=== PATIENT | female | born 1985 | race Caucasian/White ===

== ENCOUNTER 2016-07-06 19:40 | Emergency (ER) | payer OTHER ==
[~2016-07-06] VITALS: Ht 162.6 cm; Wt 86.4 kg
[~2016-07-06 19:40] MED LIST: ACET1TAB40 PO; ALBU8.5H3 INH; ALBU8.5H5 IH; BUDE180A2 IH; IBUP-1542 PO; PRED50TA PO; ZOF8 PO
[2016-07-06 19:56] VITALS: Ht 162.6 cm; Wt 86.4 kg
[2016-07-06] MEDS ORDERED: DEXAMETHASONE 10 MG/ML 1 ML INJ IM ONE (22:00)
[2016-07-06] MEDS ORDERED: IPRATROPIUM (NEB) 0.5 MG/2.5 ML AMP HHN ONE (22:00)
[2016-07-06] MEDS ORDERED: ALBUTEROL 0.083% (NEB) 2.5 MG/3 ML AMP HHN ONE (22:00)
--- NOTE | 2016-07-06 22:02 | ERD ---
ER Documentation Chief Complaint Date/Time DATE: 07/06/16 TIME: 21:59 Chief Complaint SOB X 3 DAYS. RAN OUT OF INHALER HPI Patient is a 30-year-old female who presents to the ED with cough, wheeze and shortness of breath for 3 days. She states that she has a history of asthma and usually during this time of the year her allergies in the environment exacerbate her asthma. She states that she has not used her albuterol or her budesonide since she ran out. However she states that she is increasing in wheezing. She denies shortness of breath or difficulty breathing. Denies abdominal pain, nausea, vomiting or diarrhea. Denies fever chills, runny nose. Denies leg pain or swelling. Denies recent travel, recent surgeries or use of OCPs. No other complaints ROS All systems reviewed and are negative except as per history of present illness. Medications Home Meds Active Scripts Albuterol Sulfate* (Proair HFA*) 8.5 Gm Hfa.aer.ad, 2 PUFF INH Q4, #1 INHALER Prov:ROBERT KABA PA-C 07/06/16 Budesonide (Pulmicort Flexhaler) 180 Mcg Aer.pow.ba, 180 MCG INH BID, #1 EA Prov:ROBERT KABA PA-C 07/06/16 Albuterol Sulfate* (Proair HFA*) 8.5 Gm Hfa.aer.ad, 2 PUFF INH Q4, #1 INHALER Prov:KIM VELEZ PA-C 11/13/15 Prednisone* (Prednisone*) 50 Mg Tablet, 50 MG PO DAILY, #5 TAB Prov:KIM VELEZ PA-C 11/13/15 Ondansetron Hcl* (Zofran* ODT) 8 mg -ODT Tab.disper, 8 MG PO Q6H Y for NAUSEA AND OR VOMITING, #6 TAB Prov:CURRY SORTO MD 04/28/15 Acetaminophen-Codeine* (Acetaminophen-Cod #3*) 300-30 Mg Tab, 1 TAB PO Q4H Y for PAIN, #10 TAB Prov:CURRY SORTO MD 04/28/15 Ibuprofen* (Motrin*) 600 Mg Tab, 600 MG PO Q6, #14 TAB Prov:CURRY SORTO MD 04/28/15 Reported Medications Budesonide* (Pulmicort* Flexhaler) 180 Mcg/Aer Pow Ba Aer.pow.ba, 1 PUFF IH Q4 Y for WHEEZING AND SOB, INH 02/16/14 Albuterol Sulfate* (Albuterol Sulfate* HFA) 8.5 Gm Hfa.aer.ad, 2 PUFF IH every hour Y for WHEEZING AND SOB, EA 02/16/14 Allergies Allergies: Coded Allergies: No Known Drug Allergy (Verified Allergy, Unknown, 04/28/15) PMhx/Soc History of Surgery: Yes (cholecystectomy 2011, hernia) Anesthesia Reaction: No Hx Neurological Disorder: No Hx Respiratory Disorders: Yes (asthma) Hx Cardiac Disorders: No Hx Psychiatric Problems: No Hx Miscellaneous Medical Probl: No Hx Alcohol Use: Yes (OCCASIONALLY IN THE PAST) Hx Substance Use: No Hx Tobacco Use: Yes (QUIT 2012) Smoking Status: Former smoker FmHx Family History: No coronary disease, No diabetes, No other Physical Exam Vitals Vital Signs Date Time Temp Pulse Resp B/P Pulse Ox O2 Delivery O2 Flow Rate FiO2 07/06/16 23:10 98.0 75 100 Room Air 07/06/16 22:10 87 22 97 21 07/06/16 19:56 98.1 71 18 129/69 97 Physical Exam GENERAL: Well-developed, well-nourished female. Appears in no acute distress. HEAD: Normocephalic, atraumatic. EYES: Pupils are equally reactive bilaterally. EOMs grossly intact. No conjunctival erythema. ENT: Moist mucous membranes. No uvula deviation. No kissing tonsils. No exudates. NECK: Supple. No lymphadenopathy or thyromegaly. No meningismus. negative kernig. negative brudinski. LUNG: Clear to auscultation bilaterally. No rhonchi, rales or coarse breath sounds. Expiratory wheezing on the upper bilateral lung ingram. No retractions , nasal flaring. HEART: Regular rate and rhythm. No murmurs, rubs or gallops. SKIN: Normal color. Warm and dry. No rashes or lesions. Capillary refill < 2 seconds Results 24 hrs Current Medications Medications (Trade) Dose Ordered Sig/Sheela Route PRN Reason Start Time Stop Time Status Last Admin Dose Admin Albuterol (Proventil 0.083% (Neb)) 2.5 mg ONCE ONCE HHN 07/06/16 22:00 07/06/16 22:01 DC 07/06/16 22:10 Ipratropium [place] (Atrovent 0.02% (Neb)) 0.5 mg ONCE ONCE HHN 07/06/16 22:00 07/06/16 22:01 DC 07/06/16 22:10 Dexamethasone (Decadron) 10 mg ONCE ONCE IM 07/06/16 22:00 07/06/16 22:01 DC 07/06/16 22:06 Procedures/MDM ER COURSE: I kept the patient and/or family informed of laboratory and diagnostic imaging results throughout the emergency room course. EKG, MONITORS, & DIAGNOSTIC IMAGING: [place] [id number] Radiology Main Line: [phone] DIAGNOSTIC IMAGING REPORT Patient: LEA KELLEY : 1985 Age: 30 Sex: F MR #: [id number] DOS: 07/06/16 [facility] Ordering MD: ROBERT KABA PA-C Location: [facility] Room/Bed: PROCEDURE: XR Chest. CLINICAL INDICATION: Cough. Wheezing TECHNIQUE: Portable AP upright view of the chest was obtained. COMPARISON: 05/15/2009 FINDINGS: The cardiomediastinal silhouette is within normal limits. The lungs are clear. There is no evidence for pleural effusion, pneumothorax or pulmonary vascular congestion. The osseous structures are intact with no evidence for acute abnormality. RPTAT:HJJR IMPRESSION: No evidence for acute intrathoracic pathology. Physician Aditya Date Time Electronically viewed and signed by Physician Aditya on 07/06/2016 22:26 JR/ CC: ROBERT KABA PA-C PROCEDURES: RT consult. albuterol and atrovent. tolerated medication and procedure well with no adverse reaction. Decadron 10mg IM. no adverse reaction. MEDICAL DECISION MAKING: This is a 30-year-old female who presents with cough, shortness of breath and wheezing 3 days. Vital signs were reviewed. Patient is afebrile. Patient is not hypoxic. Patient is not toxic or ill-appearing. Her temperature is 98.1 and she has an O2 sat of 97 in the ED. Patient likely has asthma exacerbation. After RT consult and treatment of albuterol and Atrovent, lung examination was within normal limits and wheezing had diminished. Her x-rays of her radiologist is within normal limits and unremarkable. Patient does not show signs of respiratory distress, speaking in full sentences and has no nasal flaring. Low suspicion for pneumonia, PE, pneumothorax, ACS, epiglottitis, obstruction, TB, pertussis, meningitis, sepsis. DISCHARGE: At this time, patient is stable for discharge and outpatient management with no new complaints during the ER course. Patient was sent home with albuterol and a refill of her budesonide.. Patient will be discharged home with instructions to recheck for new or worsening symptoms such as fever, nausea, weakness, LOC and to follow up with primary care in the next 1-2 days. Patient was advised to return to the ER for any new or worsening symptoms. Plan was discussed and patient and/or family understands and agrees. Home instructions were given. Departure Diagnosis: Primary Impression: Asthma with acute exacerbation Asthma severity: unspecified severity Qualified Code: J45.901 - Asthma with acute exacerbation, unspecified asthma severity Condition: Stable ROBERT KABA PA-C Jul 06, 2016 22:02
[2016-07-06] MEDS ORDERED: ALBU8.5H3 INH (22:03)
[2016-07-06] MEDS ORDERED: PULM180 INH (22:03)
--- NOTE | 2016-07-06 22:26 | RADRPT ---
PROCEDURE: XR Chest. CLINICAL INDICATION: Cough. Wheezing TECHNIQUE: Portable AP upright view of the chest was obtained. COMPARISON: 05/15/2009 FINDINGS: The cardiomediastinal silhouette is within normal limits. The lungs are clear. There is no evidenc e for pleural effusion, pneumothorax or pulmonary vascular congestion. The osseous structures are i ntact with no evidence for acute abnormality. RPTAT:HJJR IMPRESSION: No evidence for acute intrathoracic pathology. Physician Aditya Date Time Electronically viewed and signed by Osei Richard Physician on 07/06/2016 22:26 /
[2016-07-06 23:10] VITALS: PULSE 75; TEMP 98
== END 2016-07-06 23:10 | disposition home or self-care (01) ==
LOC: FTE 19:40
DX: J45.901 Unspecified asthma with (acute) exacerbation (principal); Z87.891 Personal history of nicotine dependence
CPT/HCPCS: 71010; 94664; 96372; J1100; Z7502; Z7610

== ENCOUNTER 2016-09-21 16:09 | Emergency (ER) | payer OTHER ==
[~2016-09-21] VITALS: Ht 160 cm; Wt 98.5 kg
[~2016-09-21 16:09] MED LIST changes: +PULM180 INH
[2016-09-21 16:29] VITALS: Ht 160 cm; Wt 98.5 kg
[2016-09-21] MEDS ORDERED: KETOROLAC 30 MG INJ IM STA (18:55)
[2016-09-21] MEDS ORDERED: DIAZEPAM 2 MG TAB PO ONE (19:00)
--- NOTE | 2016-09-21 19:37 | ERD ---
ER Documentation Chief Complaint Date/Time DATE: 09/21/16 TIME: 19:32 Chief Complaint NECK PAIN 02/16.HX OF NECK INJURY HPI Patient is a 30-year-old female who presents to the ED with right neck pain and arm pain 3 days. She states that she has had a similar injury in the past, over one year ago where she injured herself at work. She states that she does get occasional numbness and tingling in her right arm. She states that her child pulled her nail back and she felt pain in her neck and right arm. She states that her pain is localized to the right and left side of her neck. As well as the back. She denies fever or chills. She denies headache, dizziness. She states that she is able to move her neck but very minimally. She denies chest pain, cough, shortness of breath. She denies difficulty moving her arms. She denies abdominal pain, nausea, vomiting or diarrhea. She has not taken any medications for her symptoms. ROS All systems reviewed and are negative except as per history of present illness. Medications Home Meds Active Scripts Orphenadrine Citrate (Norflex) 100 Mg Tablet.sa, 100 MG PO BID for 14 Days, TAB.SA Prov:ROBERT KABA PA-C 09/21/16 Naproxen* (Naprosyn*) 500 Mg Tablet, 500 MG PO BID Y for PAIN AND/OR INFLAMMATION, #30 TAB Prov:ROBERT KABA PA-C 09/21/16 Albuterol Sulfate* (Proair HFA*) 8.5 Gm Hfa.aer.ad, 2 PUFF INH Q4, #1 INHALER Prov:ROBERT KABA PA-C 07/06/16 Budesonide (Pulmicort Flexhaler) 180 Mcg Aer.pow.ba, 180 MCG INH BID, #1 EA Prov:ROBERT KABA PA-C 07/06/16 Albuterol Sulfate* (Proair HFA*) 8.5 Gm Hfa.aer.ad, 2 PUFF INH Q4, #1 INHALER Prov:KIM VELEZ PA-C 11/13/15 Prednisone* (Prednisone*) 50 Mg Tablet, 50 MG PO DAILY, #5 TAB Prov:KIM VELEZ PA-C 11/13/15 Ondansetron Hcl* (Zofran* ODT) 8 mg -ODT Tab.disper, 8 MG PO Q6H Y for NAUSEA AND OR VOMITING, #6 TAB Prov:CURRY SORTO MD 04/28/15 Acetaminophen-Codeine* (Acetaminophen-Cod #3*) 300-30 Mg Tab, 1 TAB PO Q4H Y for PAIN, #10 TAB Prov:CURRY SORTO MD 04/28/15 Ibuprofen* (Motrin*) 600 Mg Tab, 600 MG PO Q6, #14 TAB Prov:CURRY SORTO MD 04/28/15 Reported Medications Budesonide* (Pulmicort* Flexhaler) 180 Mcg/Aer Pow Ba Aer.pow.ba, 1 PUFF IH Q4 Y for WHEEZING AND SOB, INH 02/16/14 Albuterol Sulfate* (Albuterol Sulfate* HFA) 8.5 Gm Hfa.aer.ad, 2 PUFF IH every hour Y for WHEEZING AND SOB, EA 02/16/14 Allergies Allergies: Coded Allergies: No Known Drug Allergy (Verified Allergy, Unknown, 04/28/15) PMhx/Soc History of Surgery: Yes (cholecystectomy 2011, hernia) Anesthesia Reaction: No Hx Neurological Disorder: No Hx Respiratory Disorders: Yes (asthma) Hx Cardiac Disorders: No Hx Psychiatric Problems: No Hx Miscellaneous Medical Probl: No Hx Alcohol Use: Yes (OCCASIONALLY IN THE PAST) Hx Substance Use: No Hx Tobacco Use: Yes (QUIT 2012) Smoking Status: Never smoker FmHx Family History: No coronary disease, No diabetes, No other Physical Exam Vitals Vital Signs Date Time Temp Pulse Resp B/P Pulse Ox O2 Delivery O2 Flow Rate FiO2 09/21/16 16:29 98.5 67 18 159/77 98 Physical Exam GENERAL: Well-developed, well-nourished female. Appears in no acute distress. HEAD: Normocephalic, atraumatic. EYES: Pupils are equally reactive bilaterally. EOMs grossly intact. No conjunctival erythema. ENT: Moist mucous membranes. No uvula deviation. No kissing tonsils. No exudates. NECK: Supple. No lymphadenopathy or thyromegaly. No meningismus. negative kernig. negative brudinski. LUNG: Clear to auscultation bilaterally. No rhonchi, wheezing, rales or coarse breath sounds. HEART: Regular rate and rhythm. No murmurs, rubs or gallops. Extremities: Equal pulses bilaterally. No peripheral clubbing, cyanosis or edema. No unilateral leg swelling. Tenderness to the spinal process and paraspinal process. Tenderness to her lateral sides of her neck. No step-offs or deformities. Pain with extreme abduction of her right and left arm. No wrist drop. Radius ulnar and median nerve intact. Pulses intact. NEUROLOGIC: Alert and oriented. Moving all four extremities. Normal speech. Steady gait. SKIN: Normal color. Warm and dry. No rashes or lesions. Capillary refill < 2 seconds Results 24 hrs Current Medications Medications (Trade) Dose Ordered Sig/Sheela Route PRN Reason Start Time Stop Time Status Last Admin Dose Admin Ketorolac Tromethamine (Toradol) 30 mg ONCE STAT IM 09/21/16 18:55 09/21/16 18:57 DC 09/21/16 19:46 Diazepam (Valium) 2 mg ONCE ONCE PO 09/21/16 19:00 09/21/16 19:01 DC Procedures/MDM ER COURSE: I kept the patient and/or family informed of laboratory and diagnostic imaging results throughout the emergency room course. IMAGING STUDIES pending MEDICATIONS Toradol and Valium. Tolerated well with no adverse reaction. Seen improvement in symptoms. Negative test. MEDICAL DECISION MAKING: This is a 30-year-old female who presents with neck pain 2 days. Vital signs were reviewed. Patient is afebrile. Patient is not hypoxic. Patient is not toxic or ill-appearing. Her x-ray is pending. If x-ray is unremarkable for fracture or dislocation, patient will be sent home with Naprosyn and Norflex as anti-inflammatory for her muscle strain versus sprain. Patient is stable at transfer to physician clothing sales assistant Cadence Lundberg PA-C. All questions were answered. Departure Diagnosis: Primary Impression: Neck pain Condition: Stable Comments ER COURSE: I kept the patient and/or family informed of laboratory and diagnostic imaging results throughout the emergency room course. IMAGING STUDIES MEDICATIONS Toradol 30 mg IM and Valium. Patient tolerated well with no adverse reaction. MEDICAL DECISION MAKING: This is a 30-year-old female who presents with neck pain 2 days. Vital signs were reviewed. Patient is afebrile. Patient is not hypoxic. Patient is nontoxic or ill-appearing. Patient likely has muscle strain versus sprain versus radiculopathy. Her x-rays of by radiologist does not show fracture or dislocation is unremarkable. I reexamined patient after medication and she stated improvement in symptoms and she had an increase in range of motion. Low suspicion for dislocation, fracture, epidural abscess, herniation, osteomyelitis , meningitis, neurological deficit DISCHARGE: At this time, patient is stable for discharge and outpatient management with no new complaints during the ER course. Patient was sent home with Naprosyn and Norflex. Patient will be discharged home with instructions to recheck for new or worsening symptoms such as fever, nausea, weakness, LOC and to follow up with primary care in the next 1-2 days. Patient was advised to return to the ER for any new or worsening symptoms. Plan was discussed and patient and/or family understands and agrees. Home instructions were given. ROBERT KABA PA-C September 21, 2016 19:37
[2016-09-21] MEDS ORDERED: ORPH100T PO (19:38)
[2016-09-21] MEDS ORDERED: NAPR-260 PO (19:38)
--- NOTE | 2016-09-21 20:22 | RADRPT ---
PROCEDURE: XR Cervical Spine. CLINICAL INDICATION: Neck pain TECHNIQUE: Three views of the cervical spine were performed. The images were reviewed on a PACS [employer]. COMPARISON: None. FINDINGS: The C7 vertebral body is partially visualized on the lateral view. There is straightening of the normal cervical lordosis. There is no acute fracture or dislocation. The vertebral body heights and disk spaces are preserved. The prevertebral soft tissues are normal. IMPRESSION: 1. No acute fracture or traumatic subluxation. 2. Straightening of the normal cervical lordosis. RPTAT: HFN .Sahra Hoskins MD, MD Date Time Electronically viewed and signed by .Sahra Hoskins MD, MD on 09/21/2016 20:22 .N/
--- NOTE | 2016-09-21 21:00 | EN ---
Date/Time of Note Date/Time of Note DATE: 09/21/16 TIME: 20:59 ER Progress Note X-ray was reviewed, x-ray was normal. There is no evidence of fracture dislocation. VADIM HARP September 21, 2016 21:00
== END 2016-09-21 21:09 | disposition home or self-care (01) ==
LOC: FTE 16:09
DX: M54.2 Cervicalgia (principal); J45.909 Unspecified asthma, uncomplicated; Z87.891 Personal history of nicotine dependence
CPT/HCPCS: 72040; 96372; J1885; Z7502; Z7610

== ENCOUNTER 2017-02-11 09:01 | Emergency (ER) | payer OTHER ==
[~2017-02-11] VITALS: Ht 154.9 cm; Wt 98.0 kg
[~2017-02-11 09:01] MED LIST changes: +NAPR-260 PO; +ORPH100T PO
[2017-02-11 09:03] VITALS: Ht 154.9 cm; Wt 98.0 kg
[2017-02-11] MEDS ORDERED: ALBUTEROL 0.083% (NEB) 2.5 MG/3 ML AMP HHN STA (09:21)
[2017-02-11] MEDS ORDERED: ACETAMINOPHEN 500 MG TAB PO STA (09:29)
--- NOTE | 2017-02-11 09:29 | ERD ---
ER Documentation Chief Complaint Date/Time DATE: 02/11/17 TIME: 09:21 Chief Complaint sob with throat pain x 2 days HPI 31-year-old female presents emergency department for shortness of breath and throat pain for 2 days. Stated that she felt like she had a fever last night. LMP: Stated that she just started yesterday. A0. Denies headache, dizziness, blurred vision, neck pain, difficulty swallowing, loss of appetite, chest pain, abdominal pain, , possibility of being , nausea, vomiting, constipation, diarrhea, urinary symptoms, loss of bowel bladder control, recent exposure to any illness, recent antibiotic use in the last 3 months, numbness or tingling sensation. No known drug allergies. Past medical history of asthma. Surgical history of cholecystectomy, hernia repair when she was a baby. Medication: Takes albuterol at home. Social: Stated that she is on Worker's Comp. at this time. Occasional drinks alcoholic beverages. Denies smoking, use of illegal drugs. ROS All systems reviewed and are negative except as per history of present illness. Medications Home Meds Active Scripts Amoxicillin/Potassium Clav (Amox-Clav 875-125 mg Tablet) 875-125 mg Tab, 1 TAB PO BID for 7 Days, #14 TAB Prov:INOCENTE TAVERAS 02/11/17 Prednisone* (Prednisone*) 20 Mg Tab, 40 MG PO DAILY for 4 Days, TAB Prov:INOCENTE TAVERAS 02/11/17 Acetaminophen* (Tylophen*) 500 Mg Capsule, 1 CAP PO Q6H Y for PAIN AND OR ELEVATED TEMP, #20 CAP Prov:INOCENTE TAVERAS 02/11/17 Albuterol Sulfate* (Proair HFA*) 8.5 Gm Hfa.aer.ad, 2 PUFF INH Q4, #1 INHALER Prov:INOCENTE TAVERAS 02/11/17 Orphenadrine Citrate (Norflex) 100 Mg Tablet.sa, 100 MG PO BID for 14 Days, TAB.SA Prov:ROBERT KABA PA-C 09/21/16 Naproxen* (Naprosyn*) 500 Mg Tablet, 500 MG PO BID Y for PAIN AND/OR INFLAMMATION, #30 TAB Prov:ROBERT KABA PA-C 09/21/16 Albuterol Sulfate* (Proair HFA*) 8.5 Gm Hfa.aer.ad, 2 PUFF INH Q4, #1 INHALER Prov:ROBERT KABA PA-C 07/06/16 Budesonide (Pulmicort Flexhaler) 180 Mcg Aer.pow.ba, 180 MCG INH BID, #1 EA Prov:ROBERT KABA PA-C 07/06/16 Albuterol Sulfate* (Proair HFA*) 8.5 Gm Hfa.aer.ad, 2 PUFF INH Q4, #1 INHALER Prov:KIM VELEZ PA-C 11/13/15 Prednisone* (Prednisone*) 50 Mg Tablet, 50 MG PO DAILY, #5 TAB Prov:KIM VLEEZ PA-C 11/13/15 Ondansetron Hcl* (Zofran* ODT) 8 mg -ODT Tab.disper, 8 MG PO Q6H Y for NAUSEA AND OR VOMITING, #6 TAB Prov:CURRY SORTO MD 04/28/15 Acetaminophen-Codeine* (Acetaminophen-Cod #3*) 300-30 Mg Tab, 1 TAB PO Q4H Y for PAIN, #10 TAB Prov:CURRY SORTO MD 04/28/15 Ibuprofen* (Motrin*) 600 Mg Tab, 600 MG PO Q6, #14 TAB Prov:CURRY SORTO MD 04/28/15 Reported Medications Budesonide* (Pulmicort* Flexhaler) 180 Mcg/Aer Pow Ba Aer.pow.ba, 1 PUFF IH Q4 Y for WHEEZING AND SOB, INH 02/16/14 Albuterol Sulfate* (Albuterol Sulfate* HFA) 8.5 Gm Hfa.aer.ad, 2 PUFF IH every hour Y for WHEEZING AND SOB, EA 02/16/14 Allergies Allergies: Coded Allergies: No Known Drug Allergy (Verified Allergy, Unknown, 02/11/17) PMhx/Soc History of Surgery: Yes (cholecystectomy 2011, hernia) Anesthesia Reaction: No Hx Neurological Disorder: No Hx Respiratory Disorders: Yes (asthma) Hx Cardiac Disorders: No Hx Psychiatric Problems: No Hx Miscellaneous Medical Probl: No Hx Alcohol Use: Yes (OCCASIONALLY IN THE PAST) Hx Substance Use: No Hx Tobacco Use: Yes (QUIT 2012) Physical Exam Vitals Vital Signs Date Time Temp Pulse Resp B/P Pulse Ox O2 Delivery O2 Flow Rate FiO2 02/11/17 10:18 98.2 88 20 125/73 98 Room Air 02/11/17 09:35 78 17 96 21 02/11/17 09:03 98.2 73 20 118/74 98 Physical Exam Const: [] Head: Atraumatic Eyes: Normal Conjunctiva ENT: Normal External Ears, Nose and Mouth. Throat: Uvula is midline nondisplaced. Tonsils are +2 bilaterally with redness and with exudates. Tolerating secretions. Patent airway. Speaks full and clear sentences. Neck: Full range of motion..~ No meningismus. Resp: Respirations even and nonlabored. Wheezing bilaterally. Cardio: Regular rate and rhythm, no murmurs Abd: Soft, non tender, non distended. Normal bowel sounds Skin: No petechiae or rashes Back: No midline or flank tenderness Ext: No cyanosis, or edema Neur: Awake and alert Psych: Normal Mood and Affect Results 24 hrs Current Medications Medications (Trade) Dose Ordered Sig/Sheela Route PRN Reason Start Time Stop Time Status Last Admin Dose Admin Methylprednisolone Sodium Succinate (Solu-Medrol) 125 mg ONCE ONCE IM 02/11/17 09:30 02/11/17 09:31 DC 02/11/17 09:42 Albuterol (Proventil 0.083% (Neb)) 5 mg ONCE STAT HHN 02/11/17 09:21 02/11/17 09:23 DC 02/11/17 09:34 Ipratropium [place] (Atrovent 0.02% (Neb)) 0.5 mg ONCE ONCE HHN 02/11/17 09:30 02/11/17 09:31 DC 02/11/17 09:34 Acetaminophen (Tylenol Tab) 500 mg ONCE STAT PO 02/11/17 09:29 02/11/17 09:32 DC 02/11/17 09:41 Procedures/MDM 31-year-old female presents emergency department for shortness of breath and throat pain for 2 days. Stated that she felt like she had a fever last night. LMP: Stated that she just started yesterday. A0. Denies headache, dizziness, blurred vision, neck pain, difficulty swallowing, loss of appetite, chest pain, abdominal pain, , possibility of being , nausea, vomiting, constipation, diarrhea, urinary symptoms, loss of bowel bladder control, recent exposure to any illness, recent antibiotic use in the last 3 months, numbness or tingling sensation. No known drug allergies. Past medical history of asthma. Surgical history of cholecystectomy, hernia repair when she was a baby. Medication: Takes albuterol at home. Social: Stated that she is on Worker's Comp. at this time. Occasional drinks alcoholic beverages. Denies smoking, use of illegal drugs. Physical exam: Respirations even and nonlabored. Wheezing bilaterally. Throat : Uvula is midline nondisplaced. Tonsils are +2 bilaterally with redness and with exudates. Tolerating secretions. Patent airway. Speaks full and clear sentences. Disease process was explained to the patient. She verbalized understanding and agreed with the treatment and plan of care. Treatment: Solu-Medrol IM. Albuterol and Atrovent breathing treatment. Reevaluation: Denies headache, dizziness, blurred vision, neck pain, difficulty swallowing, shoulder pain, chest pain, back pain, abdominal pain, nausea, vomiting. Respirations even and unlabored. Lung sounds are clear to auscultation. Active bowel sounds. There is no right upper/right lower/ epigastric/left upper/lower abdominal tenderness and likely palpation. Skin appears normal. No neurological deficits. No neurovascular deficits. Differential diagnosis: Pneumonia versus asthma exacerbation versus status asthmaticus versus asthmatic bronchitis versus strep throat versus tonsillitis versus upper respiratory infection Final diagnosis: Asthma exacerbation, strep throat Prescription: Augmentin. Pro-air. Prednisone. Tylenol. Follow-up with primary care physician the next 24-48 hours. Come back here in the emergency department for any new symptoms or any worsening of symptoms. All questions and concerns are answered. Patient verbalized understanding and agreed with the plan of care. Hemodynamically stable on discharge. Departure Diagnosis: Primary Impression: Asthma with acute exacerbation Additional Impressions: Asthma attack Strep throat Condition: Stable Additional Instructions: Follow-up with primary care physician the next 24-48 hours. Come back here in the emergency department for any new symptoms or any worsening of symptoms. All questions and concerns are answered. Patient verbalized understanding and agreed with the plan of care. INOCENTE TAVERAS Feb 11, 2017 09:29
[2017-02-11] MEDS ORDERED: IPRATROPIUM (NEB) 0.5 MG/2.5 ML AMP HHN ONE (09:30)
[2017-02-11] MEDS ORDERED: METHYLPREDNISOLONE 125 MG INJ IM ONE (09:30)
[2017-02-11] MEDS ORDERED: ALBU8.5H3 INH (09:32)
[2017-02-11] MEDS ORDERED: ACET500C5 PO (09:32)
[2017-02-11] MEDS ORDERED: PRED20TA PO (09:33)
[2017-02-11] MEDS ORDERED: AMOX1TAB10 PO (09:33)
[2017-02-11 10:18] VITALS: BP 125/73; PULSE 88; RESP 20; TEMP 98.2
== END 2017-02-11 10:18 | disposition home or self-care (01) ==
LOC: FTE 09:01
DX: J45.901 Unspecified asthma with (acute) exacerbation (principal); J02.9 Acute pharyngitis, unspecified; Z87.891 Personal history of nicotine dependence
CPT/HCPCS: 94664; 96372; J2930; Z7502; Z7610

== ENCOUNTER 2017-04-12 20:45 | Emergency (ER) | payer OTHER ==
[~2017-04-12] VITALS: Ht 167.6 cm; Wt 99.7 kg
[~2017-04-12 20:45] MED LIST changes: +ACET500C5 PO; +AMOX1TAB10 PO; +IPRATROPIUM (NEB) 0.5 MG/2.5 ML AMP HHN ONE; +PRED20TA PO
[2017-04-12 20:47] VITALS: Ht 167.6 cm; Wt 99.7 kg
[2017-04-12] MEDS ORDERED: ALBUTEROL 0.083% (NEB) 2.5 MG/3 ML AMP HHN STA ×2 (22:39→23:36)
[2017-04-12] MEDS ORDERED: METHYLPREDNISOLONE 125 MG INJ IM STA (22:39)
[2017-04-12] MEDS ORDERED: IPRATROPIUM (NEB) 0.5 MG/2.5 ML AMP NEB STA (22:39)
[2017-04-12 22:53] LABS: URINE BLOOD (Dip) POC Negative (NEGATIVE)
--- NOTE | 2017-04-12 22:59 | ERD ---
ER Documentation Chief Complaint Chief Complaint C/O LOWER BACK PAIN AND NOW WITH SOB HX ASTHMA HPI 31-year-old female presents here to emergency department for complaints of lower back pain, right lower back pain after falling and landing on the right lower back yesterday. Patient describes the pain as throbbing pain, 6/10 scale , as was upon movement, it radiates from the right back to the right lower leg. Patient also is complaining of cough shortness of breath and wheezing for the last 2 days. Patient has been having dry cough, does not cough up any phlegm or blood. Patient has wheezing episodes, has been using her inhaler albuterol with mild relief. ROS All systems reviewed and are negative except as per history of present illness. Medications Home Meds Active Scripts Albuterol Sulfate* (Proair HFA*) 8.5 Gm Hfa.aer.ad, 2 PUFF INH Q4H Y for WHEEZING AND SOB, #1 INHALER Prov:MING ACRE NP 04/12/17 Ipratropium-Albuterol (Ipratropium-Albuterol) 0.5-3 Mg/3 Ml Ampul.neb, 3 ML INH Q4H Y for SHORTNESS OF BREATH, #30 AMP Prov:MING ARCE NP 04/12/17 Prednisone* (Prednisone*) 50 Mg Tablet, 50 MG PO DAILY for 5 Days, TAB Prov:MING ARCE NP 04/12/17 Cetirizine Hcl* (Zyrtec*) 10 Mg Capsule, 10 MG PO DAILY, #30 TAB.CHEW Prov:MING ARCE NP 04/12/17 Guaifenesin-Codeine Phosphate* (Guaifenesin* AC Cough Syrup) 473 Ml Liquid, 10 ML PO Q4H Y for COUGH, #120 ML Prov:MING ARCE NP 04/12/17 Cyclobenzaprine Hcl* (Cyclobenzaprine Hcl*) 10 Mg Tablet, 10 MG PO TID, #15 TAB Prov:MING ARCE NP 04/12/17 Hydrocodone/Acetaminophen ([place] 5-325 Tablet) 1 Each Tablet, 1 TAB PO Q6H Y for SEVERE PAIN LEVEL 7-10, #20 TAB Prov:MING ARCE TRANSITION LEAD 04/12/17 Ibuprofen* (Motrin*) 600 Mg Tab, 600 MG PO Q6H Y for PAIN AND OR ELEVATED TEMP, #30 TAB Prov:MING ARCE TRANSITION LEAD 04/12/17 Amoxicillin/Potassium Clav (Amox-Clav 875-125 mg Tablet) 875-125 mg Tab, 1 TAB PO BID for 7 Days, #14 TAB Prov:INOCENTE TAVERAS 02/11/17 Prednisone* (Prednisone*) 20 Mg Tab, 40 MG PO DAILY for 4 Days, TAB Prov:INOCENTE TAVERAS 02/11/17 Acetaminophen* (Tylophen*) 500 Mg Capsule, 1 CAP PO Q6H Y for PAIN AND OR ELEVATED TEMP, #20 CAP Prov:GAYLENARESHAUSNCIONJANICE Gomez 02/11/17 Albuterol Sulfate* (Proair HFA*) 8.5 Gm Hfa.aer.ad, 2 PUFF INH Q4, #1 INHALER Prov:DARCYASUNCIONJANICE Gomez 02/11/17 Orphenadrine Citrate (Norflex) 100 Mg Tablet.sa, 100 MG PO BID for 14 Days, TAB.SA Prov:ROBERT KABA PA-C 09/21/16 Naproxen* (Naprosyn*) 500 Mg Tablet, 500 MG PO BID Y for PAIN AND/OR INFLAMMATION, #30 TAB Prov:ROBERT KABA PA-C 09/21/16 Albuterol Sulfate* (Proair HFA*) 8.5 Gm Hfa.aer.ad, 2 PUFF INH Q4, #1 INHALER Prov:ROBERT KABA PA-C 07/06/16 Budesonide (Pulmicort Flexhaler) 180 Mcg Aer.pow.ba, 180 MCG INH BID, #1 EA Prov:ROBERT KABA PA-C 07/06/16 Albuterol Sulfate* (Proair HFA*) 8.5 Gm Hfa.aer.ad, 2 PUFF INH Q4, #1 INHALER Prov:KIM VELEZ PA-C 11/13/15 Prednisone* (Prednisone*) 50 Mg Tablet, 50 MG PO DAILY, #5 TAB Prov:KIM VELEZ PA-C 11/13/15 Ondansetron Hcl* (Zofran* ODT) 8 mg -ODT Tab.disper, 8 MG PO Q6H Y for NAUSEA AND OR VOMITING, #6 TAB Prov:CURRY SORTO MD 04/28/15 Acetaminophen-Codeine* (Acetaminophen-Cod #3*) 300-30 Mg Tab, 1 TAB PO Q4H Y for PAIN, #10 TAB Prov:CURRY SORTO MD 04/28/15 Ibuprofen* (Motrin*) 600 Mg Tab, 600 MG PO Q6, #14 TAB Prov:CURRY SORTO MD 04/28/15 Reported Medications Budesonide* (Pulmicort* Flexhaler) 180 Mcg/Aer Pow Ba Aer.pow.ba, 1 PUFF IH Q4 Y for WHEEZING AND SOB, INH 02/16/14 Albuterol Sulfate* (Albuterol Sulfate* HFA) 8.5 Gm Hfa.aer.ad, 2 PUFF IH every hour Y for WHEEZING AND SOB, EA 02/16/14 Allergies Allergies: Coded Allergies: No Known Drug Allergy (Verified Allergy, Unknown, 02/11/17) PMhx/Soc History of Surgery: Yes (cholecystectomy 2011, hernia) Anesthesia Reaction: No Hx Neurological Disorder: No Hx Respiratory Disorders: Yes (asthma) Hx Cardiac Disorders: No Hx Psychiatric Problems: No Hx Miscellaneous Medical Probl: No Hx Alcohol Use: Yes (OCCASIONALLY IN THE PAST) Hx Substance Use: No Hx Tobacco Use: Yes (QUIT 2012) Smoking Status: Former smoker FmHx Family History: No coronary disease, No diabetes, No other Physical Exam Vitals Vital Signs Date Time Temp Pulse Resp B/P Pulse Ox O2 Delivery O2 Flow Rate FiO2 04/12/17 22:56 92 20 96 21 04/12/17 20:47 99.3 96 20 137/80 98 Physical Exam GENERAL: The patient is well developed and appropriate for usual state of health, in no apparent distress. CHEST: Diffuse wheezing noted bilaterally. There are no rales, crackles or rhonchi. HEART: Regular rate and rhythm. No murmurs, clicks, rubs or gallops. No S3 or S4. ABDOMEN: Soft, nontender and nondistended. Good bowel sounds. No rebound or guarding. No gross peritonitis. No gross organomegaly or masses. No Howard sign or McBurney point tenderness. BACK: No midline or flank tenderness. Tenderness on palpation on the right paraspinal aspect of the lumbar spine, able to do full range of motion without any restriction. Positive right straight leg test. EXTREMITIES: Equal pulses bilaterally. There is no peripheral clubbing, cyanosis or edema. No focal swelling or erythema. Full range of motion. Grossly neurovascularly intact. NEURO: Alert and oriented. Cranial nerves 2-12 intact. Motor strength in all 4 extremities with 5/5 strength. Sensation grossly intact. Normal speech and gait. SKIN: There is no apparent rash or petechia. The skin is warm and dry. HEMATOLOGIC AND LYMPHATIC: There is no evidence of excessive bruising or lymphedema. No gross cervical, axillary, or inguinal lymphadenopathy. Results 24 hrs Laboratory Tests Test 04/12/17 22:52 Bedside Urine pH (LAB) 7.0 Bedside Urine Protein (LAB) Negative Bedside Urine Glucose (UA) Negative Bedside Urine Ketones (LAB) Negative Bedside Urine Blood Negative Bedside Urine Nitrite (LAB) Negative Bedside Urine Leukocyte Esterase (L Negative Current Medications Medications (Trade) Dose Ordered Sig/Sheela Route PRN Reason Start Time Stop Time Status Last Admin Dose Admin Ipratropium Iroquois (Atrovent 0.02% (Neb)) 0.5 mg ONCE STAT NEB 04/12/17 22:39 04/12/17 22:41 DC 04/12/17 22:54 Methylprednisolone Sodium Succinate (Solu-Medrol) 125 mg ONCE STAT IM 04/12/17 22:39 04/12/17 22:41 DC 04/12/17 23:07 Albuterol (Proventil 0.083% (Neb)) 5 mg ONCE STAT N 04/12/17 22:39 04/12/17 22:41 DC 04/12/17 22:55 Albuterol (Proventil 0.083% (Neb)) 5 mg ONCE RESP THERAPY STAT [facility] 04/12/17 23:36 04/12/17 23:37 Ipratropium [place]quois (Atrovent 0.02% (Neb)) 0.5 mg ONCE ONCE N 04/13/17 00:00 04/13/17 00:01 UNV Acetaminophen/ Hydrocodone Bitart ([place] (10/325)) 1 tab ONCE ONCE PO 04/13/17 00:00 04/13/17 00:01 UNV Breathing treatment of albuterol and Atrovent IM Solu-Medrol was given here in emergency department, after treatment, patient's lungs sounds are clear and patient's oxygenation is better. Patient verbalized feeling much better. Patient was given medication for pain here in emergency department, after treatment, patient verbalized feeling much better. Patient's pain is improved. PROCEDURE: XR Chest. CLINICAL INDICATION: Asthma exacerbation. TECHNIQUE: Single frontal view of the chest. COMPARISON: 07/06/2016. FINDINGS: The cardiomediastinal silhouette is within normal limits. The lungs are clear. No signs of pleural fluid or pneumothorax are seen. The osseous structures and soft tissues are unremarkable. IMPRESSION: No evidence for active cardiopulmonary disease. RPTAT: [facility] Physician Kimmy Date Time Electronically viewed and signed by Physician Kimmy on 04/12/2017 23:11 RS/ CC: MING ARCE NP PROCEDURE: CT Lumbar Spine without contrast. CLINICAL INDICATION: Low back pain. TECHNIQUE: CT of the lumbar spine without contrast was performed. Axial images were obtained through the lumbar spine and reformatted at 2.5 mm slice thickness. Coronal and sagittal images were reformatted. One or more of the following dose reduction techniques were used: Automated exposure control, adjustment of the mA and/or kV according to patient size, use of iterative reconstruction technique. The CTDIvol = 38.52 mGy and DLP = 1176.63 mGy-cm. 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 There is preservation of lordosis, stature, mineralization and attenuation of the five bms-kwi-lkwuiil levels. Conus medularis region: Normal in attenuation and determination estimated at the L1 level. T12-L1: No discogenic abnormality of significance is seen. There is no facet arthropathy. The central canal is patent. There is no evidence for foraminal stenosis. L1-L2: No discogenic abnormality of significance is seen. There is no facet arthropathy. The ligamentum flava are normal in thickness. The central canal is patent. There is no evidence for foraminal stenosis. L2-L3: No discogenic abnormality of significance is seen. There is no facet arthropathy. The ligamentum flava are normal in thickness. The central canal is patent. There is no evidence for foraminal stenosis. L3-L4:No discogenic abnormality of significance is seen. There is no facet arthropathy. The ligamentum flava are normal in thickness. The central canal is patent. There is no evidence for foraminal stenosis. L4-L5: No discogenic abnormality of significance is seen. There is no facet arthropathy. The ligamentum flava are normal in thickness. The central canal is patent. There is no evidence for foraminal stenosis. L5-S1: No discogenic abnormality of significance is seen. There is no facet arthropathy. The ligamentum flava are normal in thickness. Congenital central canal stenosis is present the AP dimension of the thecal sac 7 mm caused in part by epidural fat deposition. There is no evidence for foraminal stenosis. Sacrum and sacroiliac joints: Sclerosis involving the left greater than right sacroiliac joints is concerning for sacroiliitis without ankylosis. None spine related findings: An intrauterine device is seen within the endometrial cavity. Cholecystectomy clips are seen RPTAT:HJJR IMPRESSION: 1. No evidence of acute lumbar spine abnormality. 2. Epidural lipomatosis and some congenital central canal stenosis at L5-S1. 3. Sclerosis of the left greater than right sacroiliac joints consistent with sacroiliitis without erosion or ankylosis. 4. Intrauterine device in good position within the endometrial cavity. Physician Aditya Date Time Electronically viewed and signed by Physician Aditya on 04/12/2017 23:19 JR/ CC: MING ARCE TRANSITION LEAD Procedures/MDM Medical Decision Making: Patient symptoms are most likely consistent with asthma exacerbation caused by acute bronchitis.. There is low suspicion for Pneumonia at this time since patients lungs sounds are clear, patient O2 saturation is normal and patient doesnt show any respiratory distress. Patient s chest xray doesnt show infiltrates or any other cardiopulmonary emergencies at this time. There is low suspicion for other cardiopulmonary emergencies at this time such as CHF, Pulmonary Embolism, Pneumothorax, Aortic Aneurysm or any other cardiopulmonary emergencies at this time. There is low suspicion for sepsis. Patient appears well and is hemodynamically stable. Patient's pain is most likely consistent with a back contusion, Exacerbated by degenerative disc disease. There is no suspicion for neurovascular compromise. Patient has intact sensation and circulation of the affected extremity and distal extremities. No incontinence, no suspicion for cauda equina syndrome, no saddle anesthesia, no symptoms of any acute bacterial infection, no symptoms of any perirectal abscesses, pilonidal cyst.There is low suspicion for septic arthritis. Patient does not have any fever. No symptoms of any aortic dissection or aortic aneurysm. Radiology exam not showing fracture or dislocation. Disposition: Home. Patient is given prescription for ibuprofen for mild to moderate pain, [place] for severe pain, Flexeril for muscle spasm, albuterol, guaifenesin with codeine prednisone Zyrtec. Patient was advised to avoid heavy lifting , apply warm compresses on affected area. Patient was advised that if symptoms are worse, numbness, tingling, high fever, unable to move joint, worsening symptoms, to return to emergency department immediately. Patient advised to increase fluid intake, do humidifier at home and if possible, do salt water gargles. Patient is advised that if symptoms are worse, shortness of breath, uncontrolled fever, stridor, vomiting, worst signs and symptoms to return to emergency department immediately.Otherwise, patient is advised to follow up with the primary care doctor in 5-7 days for reevaluation of symptoms. Disclaimer: Inadvertent spelling and grammatical errors are likely due to EHR/ dictation software use and do not reflect on the overall quality of patient care. Also, please note that the electronic time recorded on this note does not necessarily reflect the actual time of the patient encounter. Disclaimer: Inadvertent spelling and grammatical errors are likely due to EHR/ dictation software use and do not reflect on the overall quality of patient care. Also, please note that the electronic time recorded on this note does not necessarily reflect the actual time of the patient encounter. Departure Diagnosis: Primary Impression: Asthma with acute exacerbation Asthma severity: unspecified severity Asthma persistence: unspecified Qualified Code: J45.901 - Asthma with acute exacerbation, unspecified asthma severity, unspecified whether persistent Additional Impression: Back pain Back pain location: low back pain Chronicity: acute Back pain laterality: bilateral Sciatica presence: with sciatica Sciatica laterality: sciatica of right side Qualified Code: M54.41 - Acute bilateral low back pain with right- sided sciatica Condition: Stable Patient Instructions: Asthma, Acute (Adult), Back Pain (Acute Or Chronic) Additional Instructions: Patient is given prescription for ibuprofen for mild to moderate pain, [place] for severe pain, Flexeril for muscle spasm, albuterol, guaifenesin with codeine prednisone Zyrtec. Patient was advised to avoid heavy lifting , apply warm compresses on affected area. Patient was advised that if symptoms are worse, numbness, tingling, high fever, unable to move joint, worsening symptoms, to return to emergency department immediately. Patient advised to increase fluid intake, do humidifier at home and if possible, do salt water gargles. Patient is advised that if symptoms are worse, shortness of breath, uncontrolled fever, stridor, vomiting, worst signs and symptoms to return to emergency department immediately.Otherwise, patient is advised to follow up with the primary care doctor in 5-7 days for reevaluation of symptoms. MING ARCE NP Apr 12, 2017 22:59
--- NOTE | 2017-04-12 23:11 | RADRPT ---
PROCEDURE: XR Chest. CLINICAL INDICATION: Asthma exacerbation. TECHNIQUE: Single frontal view of the chest. COMPARISON: 07/06/2016. FINDINGS: The cardiomediastinal silhouette is within normal limits. The lungs are clear. No signs of pleural f luid or pneumothorax are seen. The osseous structures and soft tissues are unremarkable. IMPRESSION: No evidence for active cardiopulmonary disease. RPTAT: [facility] Physician Kimmy Date Time Electronically viewed and signed by Cecilio Kaur Physician on 04/12/2017 23:11 RS/
--- NOTE | 2017-04-12 23:19 | RADRPT ---
PROCEDURE: CT Lumbar Spine without contrast. CLINICAL INDICATION: Low back pain. TECHNIQUE: CT of the lumbar spine without contrast was performed. Axial images were obtained thro [facility] the lumbar spine and reformatted at 2.5 mm slice thickness. Coronal and sagittal images were ref ormatted. One or more of the following dose reduction techniques were used: Automated exposure cont rol, adjustment of the mA and/or kV according to patient size, use of iterative reconstruction techn ique. The CTDIvol = 38.52 mGy and DLP = 1176.63 mGy-cm. 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 There is preservation of lordosis, stature, m ineralization and attenuation of the five xol-lnn-izljnrp levels. Conus medularis region: Normal in attenuation and determination estimated at the L1 level. T12-L1: No discogenic abnormality of significance is seen. There is no facet arthropathy. The centr al canal is patent. There is no evidence for foraminal stenosis. L1-L2: No discogenic abnormality of significance is seen. There is no facet arthropathy. The ligamen kirti flava are normal in thickness. The central canal is patent. There is no evidence for foraminal stenosis. L2-L3: No discogenic abnormality of significance is seen. There is no facet arthropathy. The ligamen kirti flava are normal in thickness. The central canal is patent. There is no evidence for foraminal stenosis. L3-L4:No discogenic abnormality of significance is seen. There is no facet arthropathy. The ligament um flava are normal in thickness. The central canal is patent. There is no evidence for foraminal stenosis. L4-L5: No discogenic abnormality of significance is seen. There is no facet arthropathy. The ligamen kirti flava are normal in thickness. The central canal is patent. There is no evidence for foraminal stenosis. L5-S1: No discogenic abnormality of significance is seen. There is no facet arthropathy. The ligamen kirti flava are normal in thickness. Congenital central canal stenosis is present the AP dimension of the thecal sac 7 mm caused in part by epidural fat deposition. There is no evidence for foraminal stenosis. Sacrum and sacroiliac joints: Sclerosis involving the left greater than right sacroiliac joints is c oncerning for sacroiliitis without ankylosis. None spine related findings: An intrauterine device is seen within the endometrial cavity. Cholecyst ectomy clips are seen RPTAT:HJJR IMPRESSION: 1. No evidence of acute lumbar spine abnormality. 2. Epidural lipomatosis and some congenital central canal stenosis at L5-S1. 3. Sclerosis of the left greater than right sacroiliac joints consistent with sacroiliitis without erosion or ankylosis. 4. Intrauterine device in good position within the endometrial cavity. Physician Aditya Date Time Electronically viewed and signed by Oesi Richard Physician on 04/12/2017 23:19 JR/
[2017-04-12] MEDS ORDERED: GUAI473L22 PO (23:37)
[2017-04-12] MEDS ORDERED: ALBU8.5H3 INH (23:37)
[2017-04-12] MEDS ORDERED: CYCL-319 PO (23:37)
[2017-04-12] MEDS ORDERED: IPRA3AMP INH (23:37)
[2017-04-12] MEDS ORDERED: IBUP-1542 PO (23:37)
[2017-04-12] MEDS ORDERED: CETI10CA PO (23:37)
[2017-04-12] MEDS ORDERED: PRED50TA PO (23:37)
[2017-04-12] MEDS ORDERED: HYDR-906 PO (23:37)
[2017-04-13] MEDS ORDERED: HYDROCODONE/APAP (10/325) TAB PO ONE
[2017-04-13 00:10] VITALS: BP 123/67; PULSE 106; RESP 20
== END 2017-04-13 00:11 | disposition home or self-care (01) ==
LOC: FTE 20:45
DX: J45.901 Unspecified asthma with (acute) exacerbation (principal); M54.41 Lumbago with sciatica, right side; Z87.891 Personal history of nicotine dependence
CPT/HCPCS: 71010; 72131; 81003; 94640; 94664; 96372; J2930; Z7502; Z7610

== ENCOUNTER 2017-07-22 14:46 | Emergency (ER) | END 2017-07-22 22:20 | disposition home or self-care (01) ==

== ENCOUNTER 2018-08-19 10:33 | Emergency (ER) | payer OTHER ==
[~2018-08-19] VITALS: Ht 154.9 cm; Wt 98.0 kg
[~2018-08-19 10:33] MED LIST changes: +ALBU18HF INHALATION; +ALBU2.5V3 NEB; -ALBU8.5H3 INH; +ALBU8.5H8 INH; +AZIT250T PO; +CETI10CA PO; +CYCL10TA7 PO; +GUAI473L22 PO; +HYDR-4011 PO; +IPRA3AMP29 INH; -IPRATROPIUM (NEB) 0.5 MG/2.5 ML AMP HHN ONE; -NAPR-260 PO; +NAPR-985 PO
[2018-08-19 10:35] VITALS: Ht 154.9 cm; Wt 98.0 kg
[2018-08-19] MEDS ORDERED: ALBUTEROL 0.5% (NEB) 2.5 MG/0.5 ML AMP INH STA (11:21)
[2018-08-19] MEDS ORDERED: KETOROLAC 30 MG INJ IV STA (11:21)
[2018-08-19] MEDS ORDERED: SOD CHLORIDE 0.9% 1,000 ML IV STA (11:21)
[2018-08-19] MEDS ORDERED: IPRATROPIUM (NEB) 0.5 MG/2.5 ML AMP INH STA (11:21)
[2018-08-19] MEDS ORDERED: METHYLPREDNISOLONE 125 MG INJ IV STA (11:21)
[2018-08-19] MEDS ORDERED: BUTA1CAP38 PO (13:45)
[2018-08-19] MEDS ORDERED: PRED20TA PO (13:45)
--- NOTE | 2018-08-19 13:47 | ERD ---
ER Documentation Chief Complaint Chief Complaint pt is bib self with c/o feeling sob, and cough for a few days, hx asthma HPI 32-year-old female presents with worsening cough and wheezing over the last 3 days. She is using a nebulizer at home. She denies fevers. She denies chest pain, vomiting, abdominal pain. ROS All systems reviewed and are negative except as per history of present illness. Medications Home Meds Active Scripts Bouyxnatif-Woondapksxvxy-Qfnsbvil* (Fioricet*) 50-300-40 Mg Capsule, 1 CAP PO Q4H PRN for HEADACHE, #10 CAP Prov:CURRY SORTO MD 08/19/18 Prednisone* (Prednisone*) 20 Mg Tab, 60 MG PO DAILY for 6 Days, #15 TAB 60 mg by mouth for 3 days then 40 mg by mouth for 3 days. Prov:CURRY SORTO MD 08/19/18 Azithromycin* (Zithromax*) 250 Mg Tablet, 250 MG PO .ZPACK DIRECTED, #6 TAB TAKE 500 MG (2 TABS) THE FIRST DAY THEN 250 MG (1 TAB) DAYS 2-5 Prov:LEA SPARROW PA-C 07/22/17 Prednisone* (Prednisone*) 20 Mg Tab, 40 MG PO DAILY for 4 Days, TAB Prov:LEA SPARROW-C 07/22/17 Cyclobenzaprine Hcl* (Cyclobenzaprine Hcl*) 10 Mg Tablet, 10 MG PO QHS, #7 TAB Prov:LEA SPARROW-C 07/22/17 Naproxen* (Naprosyn*) 500 Mg Tablet, 500 MG PO BID PRN for PAIN AND/OR INFLAMMATION, #30 TAB Prov:LEA SPARROW PA-C 07/22/17 Albuterol Sulfate* (Albuterol Sulfate* Neb) 0.083%-3 Ml Neb, 2.5 MG NEB Q4 PRN for SHORTNESS OF BREATH, #30 EA Prov:LEA SPARROWC 07/22/17 Albuterol Sulfate* (Ventolin HFA*) 18 Gm Hfa.aer.ad, 2 PUFF INHALATION Q6H, #1 INHALER Prov:LEA SPARROW PA-C 07/22/17 Albuterol Sulfate* (Proair HFA*) 8.5 Gm Hfa.aer.ad, 2 PUFF INH Q4H PRN for WHEEZING AND SOB, #1 INHALER Prov:MING ARCE NP 04/12/17 Ipratropium-Albuterol (Ipratropium-Albuterol) 0.5-3 Mg/3 Ml Ampul.neb, 3 ML INH Q4H PRN for SHORTNESS OF BREATH, #30 AMP Prov:MING ARCE NP 04/12/17 Prednisone* (Prednisone*) 50 Mg Tablet, 50 MG PO DAILY for 5 Days, TAB Prov:MING ARCE NP 04/12/17 Cetirizine Hcl* (Zyrtec*) 10 Mg Capsule, 10 MG PO DAILY, #30 TAB.CHEW Prov:MING ARCE NP 04/12/17 Guaifenesin-Codeine Phosphate* (Guaifenesin* AC Cough Syrup) 473 Ml Liquid, 10 ML PO Q4H PRN for COUGH, #120 ML Prov:MING ARCE NP 04/12/17 Cyclobenzaprine Hcl* (Cyclobenzaprine Hcl*) 10 Mg Tablet, 10 MG PO TID, #15 TAB Prov:MING ARCE NP 04/12/17 Hydrocodone/Acetaminophen ([place] 5-325 Tablet) 1 Each Tablet, 1 TAB PO Q6H PRN for SEVERE PAIN LEVEL 7-10, #20 TAB Prov:MING ARCE NP 04/12/17 Ibuprofen* (Motrin*) 600 Mg Tab, 600 MG PO Q6H PRN for PAIN AND OR ELEVATED TEMP, #30 TAB Prov:MING ARCE NP 04/12/17 Amoxicillin/Potassium Clav (Amox-Clav 875-125 mg Tablet) 875-125 mg Tab, 1 TAB PO BID for 7 Days, #14 TAB Prov:INOCENTE TAVERAS 02/11/17 Prednisone* (Prednisone*) 20 Mg Tab, 40 MG PO DAILY for 4 Days, TAB Prov:PASILAINOCENTE INFANTE 02/11/17 Acetaminophen* (Tylophen*) 500 Mg Capsule, 1 CAP PO Q6H PRN for PAIN AND OR ELEV ATED TEMP, #20 CAP Prov:INOCENTE TAVERAS F 02/11/17 Albuterol Sulfate* (Proair HFA*) 8.5 Gm Hfa.aer.ad, 2 PUFF INH Q4, #1 INHALER Prov:ASUNCION TAVERASAR F 02/11/17 Orphenadrine Citrate (Norflex) 100 Mg Tablet.sa, 100 MG PO BID for 14 Days, TAB.SA Prov:ROBERT KABA PA-C 09/21/16 Naproxen* (Naprosyn*) 500 Mg Tablet, 500 MG PO BID PRN for PAIN AND/OR INFLAMMATION, #30 TAB Prov:ROBERT KABA PA-C 09/21/16 Albuterol Sulfate* (Proair HFA*) 8.5 Gm Hfa.aer.ad, 2 PUFF INH Q4, #1 INHALER Prov:ROBERT KABA PA-C 07/06/16 Budesonide (Pulmicort Flexhaler) 180 Mcg Aer.pow.ba, 180 MCG INH BID, #1 EA Prov:ROBERT KABA PA-C 07/06/16 Albuterol Sulfate* (Proair HFA*) 8.5 Gm Hfa.aer.ad, 2 PUFF INH Q4, #1 INHALER Prov:KIM VELEZ PA-C 11/13/15 Prednisone* (Prednisone*) 50 Mg Tablet, 50 MG PO DAILY, #5 TAB Prov:KIM VELEZ PA-C 11/13/15 Ondansetron Hcl* (Zofran* ODT) 8 mg -ODT Tab.disper, 8 MG PO Q6H PRN for NAUSEA AND OR VOMITING, #6 TAB Prov:CURRY SORTO MD 04/28/15 Acetaminophen-Codeine* (Acetaminophen-Cod #3*) 300-30 Mg Tab, 1 TAB PO Q4H PRN for PAIN, #10 TAB Prov:CURRY SORTO MD 04/28/15 Ibuprofen* (Motrin*) 600 Mg Tab, 600 MG PO Q6, #14 TAB Prov:CURRY SORTO MD 04/28/15 Reported Medications Budesonide* (Pulmicort* Flexhaler) 180 Mcg/Aer Pow Ba Aer.pow.ba, 1 PUFF IH Q4 PRN for WHEEZING AND SOB, INH 02/16/14 Albuterol Sulfate* (Albuterol Sulfate* HFA) 8.5 Gm Hfa.aer.ad, 2 PUFF IH every hour PRN for WHEEZING AND SOB, EA 02/16/14 Allergies Allergies: Coded Allergies: No Known Drug Allergy (Verified Allergy, Unknown, 02/11/17) PMhx/Soc History of Surgery: Yes (cholecystectomy 2011, hernia) Anesthesia Reaction: No Hx Neurological Disorder: No Hx Respiratory Disorders: Yes (asthma) Hx Cardiac Disorders: No Hx Psychiatric Problems: No Hx Miscellaneous Medical Probl: No Hx Alcohol Use: Yes (OCCASIONALLY IN THE PAST) Hx Substance Use: No Hx Tobacco Use: Yes (QUIT 2012) Smoking Status: Former smoker FmHx Family History: No diabetes, No coronary disease, No other Physical Exam Vitals Vital Signs Date Temp Pulse Resp B/P (MAP) Pulse Ox O2 O2 Flow FiO2 Time Delivery Rate 08/19/18 76 20 94 21 11:55 08/19/18 98.3 96 24 142/94 94 10:35 (110) Physical Exam Const: No acute distress Head: Atraumatic Eyes: Normal Conjunctiva ENT: Normal External Ears, Nose and Mouth. Neck: Full range of motion. No meningismus. Resp: Clear to auscultation bilaterally. Diffuse wheezing without rales or retractions. Cardio: Regular rate and rhythm, no murmurs Abd: Soft, non tender, non distended. Normal bowel sounds Skin: No petechiae or rashes Back: No midline or flank tenderness Ext: No cyanosis, or edema Neur: Awake and alert Psych: Normal Mood and Affect Results 24 hrs Laboratory Tests Test 08/19/18 11:38 POC Beta HCG, Qualitative NEGATIVE Current Medications Medications Dose Sig/Sheela Start Time Status Last (Trade) Ordered Route PRN Stop Time Admin Dose Reason Admin Sodium 1,000 ml @ Q1H STAT 08/19/18 DC 08/19/18 Chloride 1,000 mls/hr IV 11:21 11:42 08/19/18 12:20 Albuterol 10 mg ONCE STAT 08/19/18 DC 08/19/18 (Proventil INH 11:21 11:54 0.5% (Neb)) 08/19/18 11:23 Ipratropium 1 mg ONCE STAT 08/19/18 DC 08/19/18 [place] INH 11: 11:54 (Atrovent 08/19/18 11:23 0.02% (Neb)) 125 mg ONCE STAT 08/19/18 DC 08/19/18 Methylprednis IV 11:21 11:42 olone Sodium 08/19/18 11:23 Succinate (Solu-Medrol) Ketorolac 30 mg ONCE STAT 08/19/18 DC 08/19/18 Tromethamine IV 11:21 11:42 (Toradol) 08/19/18 11:23 Procedures/MDM Patient presents with wheezing despite nebulizer treatments at home. She has a history of allergies. She is no signs of chest pain, vomiting, abdominal pain. She was given 125 mg site Medrol IV, 1 L normal saline IV, continuous albuterol treatment. Patient has a bitemporal headache and was given Toradol 30 mill grams IV. She had improved wheezing significantly after observation and treatment. Patient is comfortable with treatment at home and continuation of p.o. steroids and continuation of albuterol. She has no signs of pneumonia, abdominal pain, cardiac chest pain, additional complications. She does have a persistent bitemporal headache and will be given Fioricet as well. The patient was stable with no new complaints during the ER course. Clinically, there is no current evidence to suggest meningitis, sepsis, acute abdomen, pneumonia, stroke, acute coronary syndrome, pulmonary embolism, aortic dissection or any other emergent condition appearing to require further evaluation or hospitalization. Patient counseled regarding my diagnostic impression and care plan. Prior to discharge all questions answered. Pt agrees with treatment plan and understands strict return precautions. Pt is instructed to follow up with primary care provider within 24-48 hours. Precautionary instructions provided including instructions to return to the ER if not improving or for any worsening or changing symptoms or concerns. Departure Diagnosis: Primary Impression: Shortness of breath Additional Impression: Asthma Condition: Stable Patient Instructions: Asthma Additional Instructions: Recheck for new or worsening symptoms with primary care doctor. Continue asthma medications at home. CURRY SORTO MD Aug 19, 2018 13:47
[2018-08-19 13:57] VITALS: BP 115/75; PULSE 95; RESP 16
== END 2018-08-19 13:58 | disposition home or self-care (01) ==
LOC: FTE 10:33
DX: J45.901 Unspecified asthma with (acute) exacerbation (principal)
CPT/HCPCS: 81025; 94644; 96361; 96374; 96375; J1885; J2930; J7030; Z7502; Z7610